=== PATIENT | female | born 1970 | race Caucasian/White ===

== ENCOUNTER 2023-02-19 10:32 | Outpatient (CLI) | payer BC ==
[~2023-02-19 10:32] MED LIST: Magnevist 469MG/ML 20 ML VIAL ONE
== END 2023-02-19 10:33 | disposition home or self-care (01) ==
LOC: MRI 10:32
DX: S06.0X0A Concussion without loss of consciousness, initial encounter (principal); M54.2 Cervicalgia; G44.89 Other headache syndrome; M47.812 Spondylosis without myelopathy or radiculopathy, cervical region; J34.89 Other specified disorders of nose and nasal sinuses
CPT/HCPCS: 70553; 72040; A9579